=== PATIENT | male | born 1980 | race Two or more races ===

== ENCOUNTER 2017-04-09 11:59 | Emergency (ER) | payer MEDICAID ==
[~2017-04-09] VITALS: Ht 167.6 cm; Wt 102.0 kg
[2017-04-09 14:08] VITALS: BP 129/69
== END 2017-04-09 14:08 | disposition home or self-care (01) ==
LOC: ED 11:59
DX: S39.012A Strain of muscle, fascia and tendon of lower back, initial encounter (principal); E66.9 Obesity, unspecified; Y99.8 Other external cause status; X58.XXXA Exposure to other specified factors, initial encounter; Y93.89 Activity, other specified; Y92.89 Other specified places as the place of occurrence of the external cause